=== PATIENT | female | born 1965 | race Caucasian/White ===

== ENCOUNTER → 2020-08-15 | Outpatient (CLI) | payer BC, OTHER ==
[~2020-08-15] MED LIST: COVID-19 VACC, MRNA(MODERNA)/PF 100 MCG/0.5 ML VIAL IM ONE; PANTOPRAZOLE SO40 MG PO; Z.0.LISINOPRIL10 MG PO; [UNRECOGNIZED DRUG - OTHER] PO
== END | disposition home or self-care (01) ==
LOC: VACCPMC 16:31
DX: Z23 Encounter for immunization (principal); Z20.822 Contact with and (suspected) exposure to COVID-19
CPT/HCPCS: 91301

== ENCOUNTER → 2020-09-12 | Outpatient (CLI) | payer BC, OTHER | END | disposition home or self-care (01) | LOC: VACCPMC 09:00 | DX: Z23 Encounter for immunization (principal); Z20.822 Contact with and (suspected) exposure to COVID-19 | CPT/HCPCS: 91301 ==

== ENCOUNTER 2023-12-23 16:58 | Outpatient (RCR) | payer BC ==
[~2023-12-23 16:58] MED LIST changes: -COVID-19 VACC, MRNA(MODERNA)/PF 100 MCG/0.5 ML VIAL IM ONE
== END 2023-12-25 ==
LOC: PT 16:58
PROVIDERS: ATTEND Physician Assistant
DX: S83.8X1D Sprain of other specified parts of right knee, subsequent encounter (principal); M17.11 Unilateral primary osteoarthritis, right knee; M62.81 Muscle weakness (generalized); M25.561 Pain in right knee; M25.661 Stiffness of right knee, not elsewhere classified; R26.2 Difficulty in walking, not elsewhere classified

== ENCOUNTER 2024-01-23 17:00 | Outpatient (RCR) | payer BC | END 2024-01-25 | LOC: PT 17:00 | PROVIDERS: ATTEND Physician Assistant | DX: S83.8X1D Sprain of other specified parts of right knee, subsequent encounter (principal); M17.11 Unilateral primary osteoarthritis, right knee; M62.81 Muscle weakness (generalized); M25.561 Pain in right knee; M25.661 Stiffness of right knee, not elsewhere classified; R26.2 Difficulty in walking, not elsewhere classified ==

== ENCOUNTER 2024-02-13 17:00 | Outpatient (RCR) | payer BC | END 2024-02-24 | LOC: PT 17:00 | PROVIDERS: ATTEND Physician Assistant | DX: S83.8X1D Sprain of other specified parts of right knee, subsequent encounter (principal); M17.11 Unilateral primary osteoarthritis, right knee; M62.81 Muscle weakness (generalized); M25.561 Pain in right knee; M25.661 Stiffness of right knee, not elsewhere classified; R26.2 Difficulty in walking, not elsewhere classified ==